=== PATIENT | female | born 1985 | race Caucasian/White ===

== ENCOUNTER → 2016-08-22 | Outpatient (REF) | payer OTHER | LOC: M LAB REF 13:14 | PROVIDERS: ATTEND Specialist | DX: Z36 Encounter for antenatal screening of mother (principal); Z3A.00 Weeks of gestation of pregnancy not specified ==

== ENCOUNTER 2016-09-26 03:34 | Inpatient (IN) | payer OTHER ==
[~2016-09-26] VITALS: Ht 175.3 cm; Wt 78.0 kg
[2016-09-26] VITALS (11 sets, daily range): BP systolic 117–151; BP diastolic 58–81
[2016-09-26] MEDS ORDERED: PRENTAB9 PO (04:07)
--- NOTE | 2016-09-26 05:44 | HPE ---
DATE OF ADMISSION: 09/26/2016 HISTORY: 30-year-old G1, P0 female at 41-0/7 weeks gestation by LMP consistent with 8 week ultrasound, ED[facility] 09/19/2016 presents with regular contractions every 3-4 minutes for the last 5-6 hours prior to presentation. Denies loss of fluid. Contractions became more intense. COURSE: Patient initiated care on 02/09/2016 at 8 weeks gestation. Her first trimester blood pressure is 118/66, weight 145 pounds. course was unremarkable. MEDICAL HISTORY: Noncontributory. SURGICAL HISTORY: Noncontributory. ALLERGIES: No known drug allergies. SOCIAL HISTORY: The patient denies cigarettes, alcohol or drug use. She is . FAMILY HISTORY: Noncontributory. PHYSICAL EXAM: Blood pressure 132/78. She appears uncomfortable. Head/neck exam: Normal. Lungs: Clear. Heart: Regular rate and rhythm. Abdomen: Nontender and gravid. heart tones category 1, contractions every 3-4 minutes. Sterile vaginal exam: 4 cm, 100% effaced, -2 station. Vertex, intact. Extremities: Nontender. LABS: Blood type A positive, Rubella immune, RPR nonreactive. Hepatitis B and C negative. HIV negative. Diabetes screen 73. Group B Streptococcus (GBS) negative on 08/22/2016. ASSESSMENT: 30-year-old G1, P0 female, 41-0/7 weeks gestation presents in active labor. Patient was admitted on 09/26/2016.
[2016-09-26 06:43] LABS: MEAN CORPUSCULAR HEMOGLOBIN 30.5 pg (27.0-33.0); MEAN CORPUSCULAR HGB CONC 34.6 g/dl (32.0-36.5); MEAN CORPUSCULAR VOLUME 88.1 fl (80.0-96.0); RED CELL DISTRIBUTION WIDTH 12.4 % (11.5-14.5); WHITE BLOOD COUNT 20.9 K/mm3 (4.0-10.0)
[2016-09-26] MEDS ORDERED: DOCUSATE SODIUM 100 MG CAP PO PRN (14:00)
[2016-09-26] MEDS ORDERED: ANUSOL HC CREAM 30GM TOP PRN (14:00)
[2016-09-26] MEDS ORDERED: DIBUCAINE 1% OINTMENT 30GM TOP PRN (14:00)
[2016-09-26] MEDS ORDERED: ACETAMINOPHEN 500 MG TAB PO PRN (14:00)
[2016-09-26] MEDS ORDERED: RHOGAM 300 MCG (1500 IU) INJ (J2790) IM SCH (14:00)
[2016-09-26] MEDS ORDERED: MEASLES,MUMPS,RUBELLA VACCINE INJ (MMR-II) (90707) SC SCH (14:00)
[2016-09-26] MEDS ORDERED: METHYLERGONOVINE MALEATE 0.2 MG TAB PO PRN (14:00)
--- NOTE | 2016-09-26 14:14 | DN ---
DATE: 09/26/2016 Nikole is a 30-year-old 1, para 1-0-0-1 now who was admitted to labor and delivery in active labor. She progressed through her labor physiologically and coped with her labor well. She had spontaneous rupture of membranes for a moderate amount of clear fluid at 10:56. She progressed to full dilation at 12:34. She pushed to a normal spontaneous vaginal delivery of a live female in OA position with restitution to LOT position at 1308 hours. There was no nuchal cord. Shoulders delivered with gentle downward guidance and the corpus immediately followed. The placed on maternal abdomen crying and active. The cord was clamped times two once pulsations ceased and cut by the father of the baby. A spontaneous expulsion of an intact placenta with three-vessel cord by Downey mechanism was at 1318 hours. Uterine hemostasis achieved with uterine fundal massage. Estimated blood loss to 250 mL. Perineum and vagina inspected. Noted to have a first-degree midline laceration as well as a left labial laceration. The laceration was infiltrated with 1% lidocaine and repaired with #3-0 Rapide in the usual fashion. Infant weight is pending at this time. Female infant, score of 8 and 9. Mom has named the baby Rosalia Lundberg and she does plan to breastfeed. At the close of delivery needle counts, lap counts, and instrument counts were correct and verified.
[2016-09-26] MEDS ORDERED: LIDOCAINE 1% MDV INJ 50 ML VIAL SC ONE (14:15)
[2016-09-26] MEDS: IBUPROFEN 800 MG TAB PO PRN (16:22)
[2016-09-27] MEDS: IBUPROFEN 800 MG TAB PO PRN ×3 (01:48→18:58)
[2016-09-27 05:38] VITALS: BP 107/61
[2016-09-27] MEDS: PRENATAL VITAMIN TAB PO SCH (08:26)
[2016-09-27 18:12] VITALS: BP 127/70
[2016-09-28] MEDS: IBUPROFEN 800 MG TAB PO PRN (03:39)
[2016-09-28 05:43] VITALS: BP 133/73
[2016-09-28] MEDS: PRENATAL VITAMIN TAB PO SCH (08:11)
[2016-09-28] MEDS ORDERED: IBUP-1114 PO (08:51)
[2016-09-28] MEDS ORDERED: ACET50TA PO (08:51)
== END 2016-09-28 13:00 | disposition home or self-care (01) | DRG 775 ==
LOC: M LDO 03:34 → M LDI 04:19 → M OBS 15:41
PROVIDERS: ADMIT Specialist; ATTEND Advanced Practice Midwife
PROC: 10E0XZZ Delivery of Products of Conception, External Approach (ICD-10-PCS; principal; 2016-09-26)
PROC: 0HQ9XZZ Repair Perineum Skin, External Approach (ICD-10-PCS; 2016-09-26)
DX: O48.0 Post-term pregnancy (principal); Z3A.41 41 weeks gestation of pregnancy; O70.0 First degree perineal laceration during delivery; Z37.0 Single live birth

== ENCOUNTER → 2017-08-11 | Outpatient (CLI) | payer OTHER ==
[2017-08-11 13:41] LABS: BASO % 0.2 % (0.0-1.0); EOS # 0.1 10^3/uL (0.0-0.50); EOS % 0.8 % (0.0-3.0); HEMATOCRIT 37.9 % (36.0-47.0); IMMATURE GRANULOCYTE % 0.6 % (0-3.0); LYMPH # 1.8 10^3/uL (1.5-4.5); LYMPH % 20.8 % (24.0-44.0); MEAN CORPUSCULAR HGB CONC 34.3 g/dl (32.0-36.5); MEAN CORPUSCULAR VOLUME 87.5 fl (80.0-96.0); MONO # 0.4 10^3/uL (0.0-0.8); MONO % 4.5 % (0.0-5.0); NEUTROPHILS # 6.4 10^3/uL (1.8-7.7); NEUTROPHILS % 73.1 % (36.0-66.0); PLATELET COUNT, AUTOMATED 248 10^3/uL (150-450); RED BLOOD COUNT 4.33 10^6/uL (4.00-5.40); RED CELL DISTRIBUTION WIDTH 11.9 % (11.5-14.5); WHITE BLOOD COUNT 8.7 10^3/uL (4.0-10.0)
[2017-08-11 14:43] LABS: RUBELLA IgG QUALITATIVE IMMUNE (IMMUNE)
[2017-08-11 14:45] LABS: HBsAg Prenatal NEGATIVE (NEGATIVE)
[2017-08-11 15:12] LABS: HEPATITIS C VIRUS ABY INDEX < 0.0 INDEX (<0.8)
[2017-08-11 15:13] LABS: HIV 1&2 SCREEN CENTAUR NEGATIVE (NEGATIVE)
[2017-08-11 16:17] LABS: CHLAMYDIA DNA AMPLIFICATION NEGATIVE (NEGATIVE); GC DNA AMPLIFICATION NEGATIVE (NEGATIVE)
== END ==
LOC: M SMT 10:58
DX: Z34.81 Encounter for supervision of other normal pregnancy, first trimester (principal); Z3A.09 9 weeks gestation of pregnancy

== ENCOUNTER → 2017-09-10 | Outpatient (CLI) | payer OTHER | LOC: M SMT 14:04 | DX: Z13.79 Encounter for other screening for genetic and chromosomal anomalies (principal) ==

== ENCOUNTER → 2017-09-18 | Outpatient (CLI) | payer OTHER | LOC: M SMT 14:47 | DX: Z36.9 Encounter for antenatal screening, unspecified (principal); Z3A.18 18 weeks gestation of pregnancy | CPT/HCPCS: 76811 ==

== ENCOUNTER → 2017-11-18 | Outpatient (CLI) | payer OTHER ==
[2017-11-18 12:32] LABS: HEMATOCRIT 35.6 % (36.0-47.0); HEMOGLOBIN 11.9 g/dl (12.0-15.5); MEAN CORPUSCULAR HGB CONC 33.4 g/dl (32.0-36.5); MEAN CORPUSCULAR VOLUME 89.7 fl (80.0-96.0); PLATELET COUNT, AUTOMATED 179 10^3/uL (150-450); RED BLOOD COUNT 3.97 10^6/uL (4.00-5.40); RED CELL DISTRIBUTION WIDTH 12.6 % (11.5-14.5); WHITE BLOOD COUNT 8.5 10^3/uL (4.0-10.0)
[2017-11-18 13:19] LABS: GLUCOSE CHALLENGE TEST 1 HOUR 71 MG/DL (LESS THAN 140)
== END ==
LOC: M SMT 08:44
DX: Z34.82 Encounter for supervision of other normal pregnancy, second trimester (principal)

== ENCOUNTER → 2018-01-22 | Outpatient (REF) | payer OTHER | LOC: M LAB REF 17:00 | DX: Z34.83 Encounter for supervision of other normal pregnancy, third trimester (principal); Z36.85 Encounter for antenatal screening for Streptococcus B | CPT/HCPCS: 87081 ==

== ENCOUNTER 2018-02-25 23:34 | Inpatient (IN) | payer OTHER ==
[2018-02-26 00:29] LABS: HEMATOCRIT 38.3 % (36.0-47.0); HEMOGLOBIN 13.2 g/dl (12.0-15.5); MEAN CORPUSCULAR HEMOGLOBIN 30.1 pg (27.0-33.0); MEAN CORPUSCULAR HGB CONC 34.5 g/dl (32.0-36.5); MEAN CORPUSCULAR VOLUME 87.4 fl (80.0-96.0); PLATELET COUNT, AUTOMATED 198 10^3/uL (150-450); RED BLOOD COUNT 4.38 10^6/uL (4.00-5.40); RED CELL DISTRIBUTION WIDTH 12.5 % (11.5-14.5); WHITE BLOOD COUNT 15.8 10^3/uL (4.0-10.0)
[2018-02-26] MEDS ORDERED: RHOGAM 300 MCG (1500 IU) INJ (J2790) IM (03:00)
[2018-02-26] MEDS ORDERED: ACETAMINOPHEN 500 MG TAB PO (03:00)
[2018-02-26] MEDS ORDERED: DIBUCAINE 1% OINTMENT 30GM TOP (03:00)
[2018-02-26] MEDS ORDERED: MEASLES,MUMPS,RUBELLA VACCINE INJ (MMR-II) (90707) SC (03:00)
[2018-02-26] MEDS ORDERED: DOCUSATE SODIUM 100 MG CAP PO (03:00)
[2018-02-26] MEDS ORDERED: METHYLERGONOVINE MALEATE 0.2 MG TAB PO (03:00)
[2018-02-26] MEDS ORDERED: ANUSOL HC CREAM 30GM TOP (03:00)
[2018-02-26] MEDS: IBUPROFEN 800 MG TAB PO (03:14)
[2018-02-26] MEDS: LIDOCAINE 1% MDV 20ML VIAL INFIL (03:15)
[2018-02-26] MEDS: PRENATAL VITAMINS CHEWABLE TABLET PO (08:08)
[2018-02-27] MEDS: PRENATAL VITAMINS CHEWABLE TABLET PO (08:21)
== END 2018-02-27 14:35 | disposition home or self-care (01) | DRG 775 ==
LOC: M LDO 23:34 → M OBS 02-26 04:16 → M LDI 23:46
PROVIDERS: Advanced Practice Midwife
PROC: 10E0XZZ Delivery of Products of Conception, External Approach (ICD-10-PCS; principal; 2018-02-26)
PROC: 0HQ9XZZ Repair Perineum Skin, External Approach (ICD-10-PCS; 2018-02-26)
DX: O48.0 Post-term pregnancy (principal); Z3A.41 41 weeks gestation of pregnancy; O69.82X0 Labor and delivery complicated by other cord entanglement, without compression, not applicable or unspecified; Z37.0 Single live birth; O70.0 First degree perineal laceration during delivery

== ENCOUNTER → 2018-08-12 | Outpatient (REF) | payer OTHER ==
[~2018-08-12] MED LIST: IBUP-1114 PO; MAPA500T2 PO; PRENTAB9 PO
[2018-08-14 16:13] LABS: HPV HYBRID CAPTURE II Negative (Negative)
== END ==
LOC: M LAB REF 11:29
PROVIDERS: ATTEND Advanced Practice Midwife
DX: Z12.4 Encounter for screening for malignant neoplasm of cervix (principal)
CPT/HCPCS: 87624; G0123

== ENCOUNTER → 2018-08-14 | Outpatient (CLI) | payer OTHER | LOC: M SMT 14:12 | PROVIDERS: ATTEND Advanced Practice Midwife | DX: Q82.6 Congenital sacral dimple (principal) ==